=== PATIENT | female | born 1970 | race Caucasian/White ===

== ENCOUNTER 2019-05-22 10:08 | Outpatient (CLI) | payer BC, SELFPAY ==
[2019-05-22 11:18] LABS: Add Urine Microscopic? YES; Appearance Urine Clear (Clear); Bilirubin Urine Negative (Negative); Blood Urine Negative (Negative); Color Urine Yellow (Yellow); Glucose Urine UA Negative (Negative); Ketones Urine Negative (Negative); Leukocyte Esterase Ur Negative LEU/UL (NEGATIVE); Mucus Urine Rare /lpf; Nitrate Urine Negative (Negative); Protein Urine Negative (Negative); RBC Urine 0-2 /hpf (0-2); Specific Grav Ur 1.018 (1.001-1.035); Squamous Epithelial Cell Urine Few /hpf (Few); WBC Urine 0-3 /hpf (0-3)
[2019-05-22 11:27] LABS: Albumin Level 4.1 g/dL (3.5-5.1); Blood Urea Nitrogen 9 mg/dL (7-17); Calcium 9.4 mg/dL (8.4-10.2); Carbon Dioxide 27 mmol/L (22-30); Chloride 105 mmol/L (98-107); Estimated Glomerular Filt Rate > 60; Glucose 110 mg/dL (65-105); Phosphorus 4.3 mg/dL (2.5-4.5); Potassium 4.3 mmol/L (3.4-5.0); Sodium 137 mmol/L (137-145); Uric Acid 7.4 mg/dL (2.5-7.5)
== END 2019-05-22 10:09 | disposition home or self-care (01) ==
LOC: ANHLAB 10:11
PROVIDERS: Visit Provider Internal Medicine Nephrology
DX: N20.0 Calculus of kidney (principal)
CPT/HCPCS: 36415; 80069; 81001; 84550

== ENCOUNTER 2019-05-24 17:04 | Outpatient (CLI) | payer BC, SELFPAY | END 2019-05-24 17:05 | disposition home or self-care (01) | PROVIDERS: Visit Provider Internal Medicine Nephrology | DX: N20.0 Calculus of kidney (principal) | CPT/HCPCS: 36415 ==

== ENCOUNTER 2019-05-28 10:49 | Outpatient (NON) | payer BC, SELFPAY | END 2019-05-28 10:50 | LOC: ANHLAB 10:52 | PROVIDERS: Visit Provider Internal Medicine Nephrology | DX: N20.0 Calculus of kidney (principal) | CPT/HCPCS: 36415; 82340; 82507; 82570; 83735; 83945; 83986; 84105; 84133; 84300; 84392; 84560 ==

== ENCOUNTER 2019-12-22 12:54 | Outpatient (CLI) | payer BC, SELFPAY ==
--- NOTE | ~2019-12-22 | XR_ITS ---
EXAMINATION: XR abdomen/kub 1V INDICATION: Calculus of kidney TECHNIQUE: Supine views of the abdomen were obtained on 2 radiographs. COMPARISON: 11/18/2018 FINDINGS: No definite urolithiasis is identified. Surgical changes are noted in the left mid abdomen. The bowel gas pattern is normal. There are no dilated bowel. Cholecystectomy clips are noted in the right upper quadrant. IMPRESSION: 1. No urolithiasis identified. Reviewed, dictated and finalized at location A.
== END 2019-12-22 12:55 | disposition home or self-care (01) ==
PROVIDERS: Visit Provider Internal Medicine Nephrology
DX: N20.0 Calculus of kidney (principal)
CPT/HCPCS: 74018

== ENCOUNTER 2020-03-12 16:46 | Emergency (ER) | payer BC, SELFPAY ==
[2020-03-12 16:54] VITALS: BP 120/93; PULSE 81; RESP 16; TEMP 36.4; O2SAT 98
[2020-03-12 16:56] VITALS: O2SAT 98
--- NOTE | 2020-03-12 17:00 | ED.LOWEXIN ---
HPI - Extremity Injury (Lower) General Chief Complaint: Wound/Laceration Stated Complaint: rt foot injury Source: patient Mode of arrival: ambulatory Limitations: no limitations History of Present Illness HPI Narrative: Patient is a 49-year-old female who presents with a puncture wound to right foot from stepping on a nail this afternoon that went thru the sole of her shoe. She denies other injuries. She denies taking [id number] medications for pain. She reports washing wound well after injury. Patient's tetanus is not up-to-date. Related Data Home Medications Medication Instructions Recorded Confirmed allopurinol 03/12/20 escitalopram oxalate mg 03/12/20 estradiol [Imvexxy Maintenance mcg VAGINAL 03/12/20 Pack] fesoterodine [Toviaz] mg PO 03/12/20 levothyroxine 03/12/20 topiramate 03/12/20 Allergies Allergy/AdvReac Type Severity Reaction Status Date / Time No Known Allergies Allergy Unverified 07/19/16 10:38 Review of Systems Review of Systems: Narrative: CONSTITUTIONAL: Denies fever, chills, or sweats. EYES: Denies visual changes, redness, or discharge. ENT: Denies rhinorrhea, congestion, sore throat, or otalgia. CARDIOVASCULAR: Denies chest pain, palpitations, or edema. RESPIRATORY: Denies cough or dyspnea. GASTROINTESTINAL: Denies abdominal pain, nausea, vomiting, or diarrhea. GENITOURINARY: Denies dysuria or hematuria. SKIN: Puncture wound to right foot MUSCULOSKELETAL: Denies back pain, joint pain, or myalgia. NEUROLOGIC: Denies headache, numbness, dizziness, or weakness. PSYCHIATRIC: Denies anxiety or depression. [facility] Past Medical History Medical History Anemia Anxiety Arthritis Back pain Chronic sinusitis Chronic tonsillitis Degenerative disc disease Depression Epistaxis Generalized headaches Hemorrhoids HTN (hypertension) Hypothyroidism Recurrent kidney stones UTI (urinary tract infection) Surgical History Surgical History Gastric bypass status for obesity H/O hemorrhoidectomy H/O sinus surgery History of hysterectomy History of orthopedic surgery Hx of cholecystectomy Hx of laparoscopic gastric banding Hx of tonsillectomy Family History Family History Father Family history of cardiovascular disease Family history of lung cancer Mother Family history of lung cancer Social History Social History (Updated 03/12/20 @ 17:07 by NAUN Sanchez) Smoking status: Never smoker Alcohol intake: current Alcohol use details: socially Substance use: never Exam Narrative: Exam Narrative: GENERAL: Well-appearing, well-nourished, and in no acute distress. HEAD: Normocephalic, atraumatic. EYES: No redness or drainage. ENT: Mucous membranes pink and moist. CHEST: No respiratory distress. HEART: Regular rate and rhythm. MUSCULOSKELETAL: No bony tenderness. EXTREMITIES: Normal range of motion. Puncture wound to plantar surface of right foot. SKIN: Warm, dry, no rash. NEURO: No focal deficits. Alert and oriented x3. Gait steady. PSYCH: Normal affect. No signs of depression or anxiety. Course Vital Signs Vital signs: Vital Signs Temperature 36.4 C 03/12/20 16:54 Pulse Rate 81 03/12/20 16:54 Respiratory Rate 16 03/12/20 16:54 Blood Pressure 120/93 H 03/12/20 16:54 Pulse Oximetry 98 03/12/20 16:54 Temperature 36.4 C 03/12/20 16:54 Pulse Rate 81 03/12/20 16:54 Respiratory Rate 16 03/12/20 16:54 Blood Pressure 120/93 H 03/12/20 16:54 Pulse Oximetry 98 03/12/20 16:56 MDM - Extremity Injury (Lower) MDM Narrative Medical decision making narrative: Wound cleansed, patient's tetanus updated. Patient started on levofloxacin at this time for injury. Patient encouraged to follow-up with PCP in 3 to 5 days if symptoms persist. Patient also ins
[2020-03-12] MEDS: TETANUS,DIPHTHERIA,AC PERTUSSIS ADULT (0.5 ML) BOOSTRIX IM (17:02)
== END 2020-03-12 17:30 | disposition home or self-care (01) ==
PROVIDERS: Emergency Provider Nurse Practitioner; PCP Family Medicine
DX: S91.331A Puncture wound without foreign body, right foot, initial encounter (principal); W45.0XXA Nail entering through skin, initial encounter; Z23 Encounter for immunization; M19.90 Unspecified osteoarthritis, unspecified site; I10 Essential (primary) hypertension; E03.9 Hypothyroidism, unspecified; Z98.84 Bariatric surgery status; F41.9 Anxiety disorder, unspecified; F32.9 Major depressive disorder, single episode, unspecified
CPT/HCPCS: 90471; 90715; 99213; G0463

== ENCOUNTER → 2020-04-24 01:14 | Outpatient (CLI) | payer BC, SELFPAY ==
[2020-04-24 18:28] LABS: SARS-CoV-2 RNA PCR Negative
== END ==
PROVIDERS: Visit Provider Surgery
DX: Z01.812 Encounter for preprocedural laboratory examination (principal); Z20.822 Contact with and (suspected) exposure to COVID-19
CPT/HCPCS: C9803; U0003; U0005

== ENCOUNTER 2020-04-27 01:24 | Day surgery (SDC) | payer BC, SELFPAY ==
[2020-04-11 14:37] VITALS: BMI 41.1
[2020-04-27 06:59] VITALS: BP 115/78; PULSE 78; RESP 20; TEMP 36; O2SAT 99; BMI 41.7
[2020-04-27] MEDS: LACTATED RINGERS 1,000 ML 150 ML IV CONT (07:03)
--- NOTE | 2020-04-27 07:42 | WPDANESEPPF ---
Anes - Initial Pre Proc Eval Procedure: Operation Date: 04/27/20 08:00 Proposed Procedures p Screening Colonoscopy - Charles Waite DO Date/Time: 04/27/20 07:42 Surgeon: Charles Waite DO Pre Op Diagnosis: Neoplasm Screening Patient Data Age: 49 Gender: F Height: 1.65 m Weight: 113.8 kg Last Vital Signs Temp 36.0 C L 04/27/20 06:59 Pulse 78 04/27/20 06:59 Resp 20 04/27/20 06:59 BP 115/78 04/27/20 06:59 Pulse Ox 99 04/27/20 06:59 Allergies Allergy/AdvReac Type Severity Reaction Status Date / Time No Known Allergies Allergy Verified 04/27/20 06:56 Home Medications Medication Instructions Recorded Confirmed Type allopurinol 450 mg PO DAILY 03/12/20 04/27/20 History escitalopram oxalate 30 mg PO DAILY 03/12/20 04/27/20 History fesoterodine [Toviaz] 4 mg PO DAILY 03/12/20 04/27/20 History levothyroxine 125 mcg PO DAILY 03/12/20 04/27/20 History topiramate 25 mg PO DAILY 03/12/20 04/27/20 History fluticasone propionate 50 mcg INTRANASAL DAILY 04/11/20 04/27/20 History lorazepam [Ativan] 0.5 mg PO DAILY PRN 04/11/20 04/27/20 History montelukast [Singulair] 10 mg PO DAILY 04/11/20 04/27/20 History sumatriptan succinate [Imitrex] 50 mg PO DAILY PRN 04/11/20 04/27/20 History Patient hx anesthesia problems: none Family hx anesthesia problems: none PMFSH Past Medical History Medical History Anemia Anxiety Arthritis Back pain Chronic sinusitis Chronic tonsillitis Degenerative disc disease Depression Epistaxis Generalized headaches Hemorrhoids HTN (hypertension) Hypothyroidism Recurrent kidney stones UTI (urinary tract infection) Surgical History Surgical History Gastric bypass status for obesity H/O hemorrhoidectomy H/O sinus surgery History of hysterectomy History of orthopedic surgery Hx of cholecystectomy Hx of laparoscopic gastric banding Hx of tonsillectomy Family History Family History Father Family history of cardiovascular disease Family history of lung cancer Mother Family history of lung cancer Social History Social History (Updated 03/12/20 @ 17:07 by NAUN Sanchez) Smoking status: Never smoker Alcohol intake: never Substance use: never Substance use type: does not use Living arrangements: with family Spiritual care concerns: No Anes - Eval Final PreProcedure Day of Procedure 04/27/20 07:42 Patient weight: morbidly obese Heart: regular rate and rhythm Lungs: clear to auscultation and normal air movement Airway: Mallampati scale class II Neurological: alert and oriented Last oral intake: >/= 8 hours ASA classification: III Emergent: no Anesthetic plan: proceed Anesthesia type and monitoring: general GIVS Informed Consent: The patient's anesthetic plan and its attendant risks and benefits were discussed with the patient/family/POA. Questions were solicited and answers provided to the satisfaction of the patient/family/POA.
--- NOTE | 2020-04-27 07:51 | PM.IMHP ---
H&P: HPI History of Present Illness Date/Time: 04/27/20 07:51 Chief Complaint: screening for colorectal cancer Narrative: Angelica Huber is a 49 year old female presents for first colonoscopy. She has occasional blood in stool. Denies change in bowel habits. No fam hx colon cancer. Review of Systems Review of Systems: All systems reviewed & are unremarkable except as noted in HPI and below Constitutional: Constitutional: Denies chills, Denies fever(s), Denies headache(s) and Denies weight loss Eyes: Eyes: Denies change in vision ENT: Denies dizziness, Denies headache(s), Denies neck mass and Denies throat swelling Cardiovascular: Cardiovascular: Denies chest pain, Denies lightheadedness and Denies dyspnea Respiratory: Respiratory: Denies cough, Denies dyspnea and Denies wheezing Gastrointestinal: Gastrointestinal: Denies abdominal pain, Denies change in bowel habits, Denies nausea and Denies vomiting Genitourinary: Genitourinary: Denies hematuria and Denies dysuria Musculoskeletal: Musculoskeletal: Reports as per HPI Integumentary/Breasts: Skin/Breast: Reports as per HPI Neurologic: Denies dizziness and Denies headache(s) Allergic/Immunologic: Allergic/Immunologic: Denies throat swelling and Denies wheezing PMFSH Past Medical History Medical History Anemia Anxiety Arthritis Back pain Chronic sinusitis Chronic tonsillitis Degenerative disc disease Depression Epistaxis Generalized headaches Hemorrhoids HTN (hypertension) Hypothyroidism Recurrent kidney stones UTI (urinary tract infection) Surgical History Surgical History Gastric bypass status for obesity H/O hemorrhoidectomy H/O sinus surgery History of hysterectomy History of orthopedic surgery Hx of cholecystectomy Hx of laparoscopic gastric banding Hx of tonsillectomy Family History Family History Father Family history of cardiovascular disease Family history of lung cancer Mother Family history of lung cancer Social History Social History Smoking status: Never smoker Alcohol intake: never Substance use: never Substance use type: does not use Living arrangements: with family Spiritual care concerns: No Meds Home Medications and Allergies Home Medications Medication Instructions Recorded Confirmed Type allopurinol 450 mg PO DAILY 03/12/20 04/27/20 History escitalopram oxalate 30 mg PO DAILY 03/12/20 04/27/20 History fesoterodine [Toviaz] 4 mg PO DAILY 03/12/20 04/27/20 History levothyroxine 125 mcg PO DAILY 03/12/20 04/27/20 History topiramate 25 mg PO DAILY 03/12/20 04/27/20 History fluticasone propionate 50 mcg INTRANASAL DAILY 04/11/20 04/27/20 History lorazepam [Ativan] 0.5 mg PO DAILY PRN 04/11/20 04/27/20 History montelukast [Singulair] 10 mg PO DAILY 04/11/20 04/27/20 History sumatriptan succinate [Imitrex] 50 mg PO DAILY PRN 04/11/20 04/27/20 History Allergies Allergy/AdvReac Type Severity Reaction Status Date / Time No Known Allergies Allergy Verified 04/27/20 06:56 Vital Signs Vital Signs - 24 hr 04/27/20 06:59 Temperature 36.0 C L Pulse Rate 78 Respiratory Rate 20 Blood Pressure 115/78 Pulse Oximetry 99 Exam Const: General: no acute distress and alert Orientation/consciousness: patient oriented x3 HENMT: Head: normocephalic and atraumatic Ears: hearing grossly normal bilaterally General nose exam: Normal nares present Mouth: Yes Normal oral and palatal mucosa present Eyes: Periorbital: periorbital findings normal Sclera: sclerae normal EOM: EOMs intact bilaterally Neck: Neck: normal visual inspection, no lymphadenopathy and trachea midline Chest: Chest palpation & inspection: normal inspection of the chest Resp: Effort & Inspection: normal res
[2020-04-27 08:32] VITALS: BP 109/78; PULSE 65; RESP 18; O2SAT 99
[2020-04-27 08:42] VITALS: BP 102/69; PULSE 63; RESP 12; O2SAT 98
[2020-04-27 08:52] VITALS: BP 114/78; PULSE 60; RESP 17; O2SAT 100
== END 2020-04-27 09:05 | disposition home or self-care (01) ==
PROVIDERS: PCP Family Medicine; Visit Provider Surgery
PROC: 0DJD8ZZ Inspection of Lower Intestinal Tract, Via Natural or Artificial Opening Endoscopic (ICD-10-PCS; CPT 45378; principal; 2020-04-27 08:00)
DX: Z12.11 Encounter for screening for malignant neoplasm of colon (principal); D12.0 Benign neoplasm of cecum; I10 Essential (primary) hypertension; E03.9 Hypothyroidism, unspecified; D64.9 Anemia, unspecified; F41.8 Other specified anxiety disorders; Z98.84 Bariatric surgery status; E66.01 Morbid (severe) obesity due to excess calories; Z68.41 Body mass index [BMI] 40.0-44.9, adult
CPT/HCPCS: 45385; 88305; J2704; J7120

== ENCOUNTER 2020-07-24 17:39 | Outpatient (CLI) | payer BC, SELFPAY ==
--- NOTE | ~2020-07-24 | XR_ITS ---
EXAMINATION: XR abdomen/kub 1V EXAM DATE: 07/24/2020 17:55 INDICATION: Bilateral ureteral calculi, low back pain. TECHNIQUE: Frontal projection of the upper abdomen, frontal projection lower abdomen/pelvis for inter pretation. Comparison is made to prior examination from 12/22/2019. FINDINGS: There are a couple of densities between the left L2 and L3 vertebral bodies, may be too hig h to be ureteropelvic junction stones. This finding has been indicated, marked on the examination for review, clinical correlation. No calcific densities identified over the kidneys. Left-sided pelvic surgical clip. There are cholecystectomy clips. Nonobstructive bowel gas pattern. Gastroesophageal junction surgical changes. There are mild bony degenerative changes. IMPRESSION: Possible left UPJ stones. Reviewed, dictated and finalized at location A. IMPRESSION: Possible left UPJ stones.
== END 2020-07-24 17:40 | disposition home or self-care (01) ==
PROVIDERS: Visit Provider Urology
DX: N20.1 Calculus of ureter (principal)
CPT/HCPCS: 74018

== ENCOUNTER 2020-07-31 17:09 | Outpatient (CLI) | payer BC, SELFPAY ==
--- NOTE | ~2020-07-31 | CT_ITS ---
EXAMINATION: CT abdomen pelvis wo con DATE: 07/31/2020 17:48 INDICATION: Left-sided kidney stones TECHNIQUE: Computed tomography (CT) of the abdomen and pelvis was performed without intravenous contr ast. Automated exposure control and iterative reconstruction technique were employed. Exam dose: 921 .25 mGy-cm total exam DLP. COMPARISON: 07/24/2020 KUB 11/13/[address] abdomen pelvis FINDINGS: The lung bases are clear of infiltrate or consolidation. Heart size is within normal limits. No pericardial or pleural effusion. Status post cholecystectomy. Status post gastric bypass surgery. Small sliding hiatal hernia. The liver, spleen, pancreas, adrenal glands are unremarkable. No right urinary tract calculus or hydroureteronephrosis. Approximately 4 mm nonobstructing lower pole left renal calculus. No apparent ureteral calculus on the left. No hydronephrosis. The urinary bladder is unremarkable. Status post hysterectomy. Normal caliber of the abdominal aorta. No intraperitoneal or retroperitoneal or pelvic mass lesion or adenopathy or ascites. Normal appendix. No bowel obstruction, bowel wall thickening, pneumatosis or intraperitoneal free air is evident. Small fat-containing umbilical hernia. No suspicious osteolytic or osteoblastic lesions. IMPRESSION: 4 mm lower pole nonobstructing left renal calculus Status post cholecystectomy Status post gastric bypass surgery Small sliding hiatal hernia Reviewed, dictated and finalized at Location A. Reviewed, dictated and finalized at location A.
== END 2020-07-31 17:10 | disposition home or self-care (01) ==
PROVIDERS: Visit Provider Urology
DX: N20.0 Calculus of kidney (principal); Z90.49 Acquired absence of other specified parts of digestive tract; K44.9 Diaphragmatic hernia without obstruction or gangrene
CPT/HCPCS: 74176

== ENCOUNTER 2020-09-04 14:57 | Emergency (ER) | payer BC, SELFPAY ==
--- NOTE | ~2020-09-04 | CT_ITS ---
EXAMINATION: CT abdomen pelvis w con DATE: 09/04/2020 18:39 INDICATION: Right lower quadrant abdominal pain. TECHNIQUE: Computed tomography (CT) of the abdomen and pelvis was performed with 100 mL Omnipaque 350 intravenous contrast. Automated exposure control and iterative reconstruction technique were employe d. The dose-length product was 1375.65 mGy-cm. COMPARISON: CT abdomen and pelvis 07/31/2020, 03/26/17 FINDINGS: The visualized portions of the lung bases are clear without pneumonia or pleural effusion. The heart size is normal. No pericardial effusion. Defects in the right lower lobe pulmonary artery a re suspicious for emboli. There is a small sliding hiatal hernia. There are surgical changes of the s tomach. The liver and spleen are normal. There are changes of cholecystectomy. The pancreas, adrenal glands, and right kidney are normal. There is cortical thinning of left kidney. There are 2 stones in left kidney with the larger measuring 4 mm. There are no dilated loops of bowel. The appendix is nor mal. There are no pathologically enlarged lymph nodes. There is no free intraperitoneal fluid. There is a benign bone island in left sacral ala. IMPRESSION: 1. Acute right lower lobe pulmonary emboli. I called this result to Kristan Fan. Reviewed, dictated and finalized at location A. IMPRESSION: 1. Acute right lower lobe pulmonary emboli. I called this result to Kristan gonsales.
--- NOTE | ~2020-09-04 | CT_ITS ---
EXAMINATION: CTA chest PE protocol DATE: 09/04/2020 19:11 INDICATION: Acute pulmonary emboli. TECHNIQUE: Computed tomography angiography (CTA) of the chest was performed with 100 mL Omnipaque-350 intravenous contrast timed to evaluate the pulmonary arteries. Coronal maximum intensity projection 3D-reconstructions were created by the technologist. Automated exposure control and iterative reconst ruction technique were employed. The dose-length product was 797.34 mGy-cm. COMPARISON: CT abdomen and pelvis 09/04/2020 FINDINGS: There is no pneumonia or pleural effusion. The heart size is normal. No pericardial effusio n. There is a small sliding hiatal hernia. There are surgical changes of the stomach. There are aust[place] es of cholecystectomy. There are acute pulmonary emboli in the basal segments of right lower lobe. Th ere is mild thoracic spondylosis. There are changes of anterior fusion procedure in cervical spine. IMPRESSION: 1. Acute pulmonary emboli in right lower lobe. Reviewed, dictated and finalized at location A.
[2020-09-04 15:00] VITALS: BP 118/81; PULSE 86; RESP 20; TEMP 36.4; O2SAT 100
[2020-09-04 15:11] LABS: Basophils Absolute Auto 0.1 K/mm3 (0.0-0.1); Eosinophils Absolute Auto 0.4 K/mm3 (0-0.3); Eosinophils Percent Auto 4.7 % (0-4.4); Hematocrit 38.3 % (37.0-47.0); Hemoglobin 12.6 g/dL (12.0-15.0); Immature Granulocyte Absolute 0.01 K/mm3 (0.00-0.031); Immature Granulocyte Percent A 0.1 % (0-0.5); Lymphocytes Absolute Auto 2.53 K/mm3 (0.9-3.2); Lymphocytes Percent Auto 29.5 % (18.3-44.2); Mean Corpuscular HGB Conc 32.9 g/dl (32-36); Mean Corpuscular Hemoglobin 31.3 pg (26-34); Mean Platelet Volume 9.4 fl (7.4-10.4); Monocytes Absolute Auto 0.6 K/mm3 (0.1-0.6); Monocytes Percent Auto 7.2 % (2.6-8.5); Neutrophils Absolute Auto 4.9 K/mm3 (1.3-6.7); Neutrophils Percent Auto 57.5 % (45.5-73.1); Platelet Count Result 339 k/mm3 (150-375); Red Blood Count 4.03 M/mm3 (4.2-5.4); Red Cell Distribution Width 12.9 % (11.5-14.5); White Blood Count 8.6 K/mm3 (4.5-10.0)
[2020-09-04 15:22] LABS: Alanine Aminotransferase 19 U/L (4-35); Albumin Level 4.6 g/dL (3.5-5.1); Alkaline Phosphatase 82 U/L (38-126); Anion Gap 10 mmol/L (8-16); Aspartate Amino Transferase 27 U/L (14-36); Bilirubin,Total 0.3 mg/dL (0.2-1.3); Blood Urea Nitrogen 10 mg/dL (7-17); Calcium 9.5 mg/dL (8.4-10.2); Carbon Dioxide 25 mmol/L (22-30); Chloride 106 mmol/L (98-107); Estimated CRCL calculation 118 ml/min; Estimated Glomerular Filt Rate > 60; Glucose 132 mg/dL (65-105); Lipase 176 U/L (23-300); Potassium 4.2 mmol/L (3.4-5.0); Sodium 141 mmol/L (137-145)
[2020-09-04 15:40] LABS: Add Urine Microscopic? YES; Appearance Urine Cloudy (Clear); Bacteria Urine Trace /hpf; Bilirubin Urine Negative (Negative); Blood Urine Negative (Negative); Color Urine Amber (Yellow); Glucose Urine UA Negative (Negative); Ketones Urine Negative (Negative); Leukocyte Esterase Ur Negative LEU/UL (Negative); Mucus Urine Heavy /lpf; Nitrate Urine Negative (Negative); Protein Urine Negative (Negative); Specific Grav Ur 1.025 (1.001-1.035); Squamous Epithelial Cell Urine Many /hpf (Few)
--- NOTE | 2020-09-04 17:37 | ED.ABDPAIN ---
HPI - Abdominal Pain General Chief Complaint: Abdominal Pain Stated Complaint: rlq abd pain Time Seen by Provider: 09/04/20 16:50 Source: patient Mode of arrival: ambulatory Limitations: no limitations History of Present Illness HPI narrative: Patient is a 49-year-old female who presents complaining of right lower quadrant pain x1 day. Patient reports pain starting early Friday. She reports taking Tylenol yesterday with limited relief. She reports awaking this morning with increased pain. She reports pain with palpation and movement. She denies nausea, vomiting, or diarrhea. She reports a history of a partial hysterectomy and kidney stones in the past. She denies urinary complaints at this time. Patient appears uncomfortable. MD elicited complaint: abdominal pain Related Data Home Medications Medication Instructions Recorded Confirmed Toviaz 4 mg PO DAILY 03/12/20 09/04/20 allopurinol 450 mg PO DAILY 03/12/20 09/04/20 escitalopram oxalate 30 mg PO DAILY 03/12/20 09/04/20 levothyroxine 125 mcg PO DAILY 03/12/20 09/04/20 topiramate 25 mg PO DAILY 03/12/20 09/04/20 fluticasone propionate 50 mcg INTRANASAL DAILY 04/11/20 09/04/20 lorazepam [Ativan] 0.5 mg PO DAILY PRN 04/11/20 09/04/20 montelukast [Singulair] 10 mg PO DAILY 04/11/20 09/04/20 sumatriptan succinate [Imitrex] 50 mg PO DAILY PRN 04/11/20 09/04/20 Allergies Allergy/AdvReac Type Severity Reaction Status Date / Time No Known Allergies Allergy Verified 09/04/20 15:02 Review of Systems Review of Systems: Narrative: CONSTITUTIONAL: Denies fever, chills, or sweats. EYES: Denies visual changes, redness, or discharge. ENT: Denies rhinorrhea, congestion, sore throat, or otalgia. CARDIOVASCULAR: Denies chest pain, palpitations, or edema. RESPIRATORY: Denies cough or dyspnea. GASTROINTESTINAL: Reports abdominal pain, denies nausea, vomiting, or diarrhea. GENITOURINARY: Denies dysuria or hematuria. SKIN: Denies rash or itching. MUSCULOSKELETAL: Denies back pain, joint pain, or myalgia. NEUROLOGIC: Denies headache, numbness, dizziness, or weakness. PSYCHIATRIC: Denies anxiety or depression. [facility] Past Medical History Medical History Anemia Anxiety Arthritis Back pain Chronic sinusitis Chronic tonsillitis Degenerative disc disease Depression Epistaxis Generalized headaches Hemorrhoids HTN (hypertension) Hypothyroidism Recurrent kidney stones UTI (urinary tract infection) Surgical History Surgical History Gastric bypass status for obesity H/O hemorrhoidectomy H/O sinus surgery History of hysterectomy History of orthopedic surgery Hx of cholecystectomy Hx of laparoscopic gastric banding Hx of tonsillectomy Family History Family History Father Family history of cardiovascular disease Family history of lung cancer Mother Family history of lung cancer Social History Social History Smoking status: Never smoker Alcohol intake: never Substance use: never Substance use type: does not use Gender identity (if verbalized by the patient): Female Spiritual care concerns: No Comments At the time of signature, I have reviewed and agree with nursing past medical, surgical, social, and family history unless otherwise noted. Please see nursing chart for further information. There is no relevant family history pertinent to the presenting complaint. Exam Narrative: Exam Narrative: GENERAL: Well-appearing, well-nourished, and in no acute distress. HEAD: Normocephalic, atraumatic. EYES: EOMI. No redness or drainage. Conjunctiva are normal. ENT: Mucous membranes pink and moist. CHEST: No respiratory distress. Clear to auscultation. HEART: Regular rate and rhythm. No murmur appreciated. Normal peripheral pulses. GI: Soft, ten
[2020-09-04] MEDS: SODIUM CHLORIDE 0.9% IV 1,000 ML 999 ML IV CONT (17:51)
--- NOTE | 2020-09-04 18:57 | ECG_ITS ---
Measurements Intervals [place] Rate: 66 P: 202 LA: 155 QRS: 185 QRSD: 90 T: 174 QT: 415 QTc: 436 Interpretive Statements SINUS RHYTHM LIMB LEAD REVERSAL BASELINE ARTIFACT- I, III, AVL, AVF, V1, V3-V4 ATYPICAL ECG Electronically Signed On 09-04-2020 19:51:33 CDT by Zak Lu D.O.
[2020-09-04 19:28] VITALS: BP 130/81; PULSE 62; RESP 12; O2SAT 100
[2020-09-04 19:39] LABS: Prothrombin Time 13.8 Seconds (11.1-14.7)
[2020-09-04] MEDS: RIVAROXABAN 15 MG TABLET PO (21:23)
== END 2020-09-04 22:17 | disposition home or self-care (01) ==
PROVIDERS: Emergency Medicine; Emergency Provider Nurse Practitioner; PCP Family Medicine
DX: I26.99 Other pulmonary embolism without acute cor pulmonale (principal); I10 Essential (primary) hypertension; E03.9 Hypothyroidism, unspecified; M19.90 Unspecified osteoarthritis, unspecified site; F41.9 Anxiety disorder, unspecified; F32.9 Major depressive disorder, single episode, unspecified; Z86.2 Personal history of diseases of the blood and blood-forming organs and certain disorders involving the immune mechanism; Z87.442 Personal history of urinary calculi; Z87.440 Personal history of urinary (tract) infections; Z98.84 Bariatric surgery status
CPT/HCPCS: 36415; 71275; 74177; 80053; 81001; 83690; 85025; 85610; 85730; 93005; 96361; 96365; 99284; A9270; J0131; J7030; Q9967

== ENCOUNTER 2020-11-15 09:56 | Emergency (ER) | payer BC, SELFPAY ==
--- NOTE | ~2020-11-15 | XR_ITS ---
EXAMINATION: XR femur LT min 2V DATE: 11/15/2020 11:22 INDICATION: Dog bite with lacerations at the medial aspect of the left thigh. TECHNIQUE: AP and lateral views of the left femur were obtained on separate overlapping proximal and distal images. COMPARISON: None. FINDINGS: Bone alignment is normal. No fracture. Joint spaces appear normal. No left knee joint effus ion. Small soft tissue density and associated lucency in the superficial subcutaneous tissues at the medial aspect of the distal left thigh which likely represents the site of a reported dog bite with l aceration. No radiopaque foreign bodies or more remote soft tissue gas. Surgical clip at the left hem ipelvis. IMPRESSION: 1. No osseous abnormality or radiopaque foreign bodies. Reviewed, dictated and finalized at location A.
--- NOTE | ~2020-11-15 | XR_ITS ---
EXAMINATION: XR forearm LT 2V DATE: 11/15/2020 11:21 INDICATION: Dog bite with lacerations to the left forearm TECHNIQUE: AP an lateral views of the left forearm were obtained. COMPARISON: none FINDINGS: Bone alignment is normal. No fracture. Joint spaces are normal. Soft tissue swelling with focal subcu taneous edema at the ulnar side of the proximal forearm. Extensive soft tissue swelling with subcutan eous edema and soft tissue gas extending along the muscular fascia proximally and distally along the proximal to mid left forearm with deep laceration seen at the dorsal aspect of the mid forearm. No ra diopaque foreign bodies identified. IMPRESSION: 1. Deep laceration with extensive soft tissue gas along the left forearm. No radiopaque foreign body or osseous abnormality. Reviewed, dictated and finalized at location A. IMPRESSION: 1. Deep laceration with extensive soft tissue gas along the left forearm. No ra diopaque foreign body or osseous abnormality.
--- NOTE | ~2020-11-15 | XR_ITS ---
EXAMINATION: XR wrist RT 2V DATE: 11/15/2020 11:21 INDICATION: Dog bite with right wrist laceration and swelling TECHNIQUE: Posteroanterior and lateral views of the right wrist were obtained. COMPARISON: none FINDINGS: Bone alignment is normal. There is a localized fracture with depression of the volar cortex and a sma ll region of the distal right ulnar metaphysis. The dorsal, radial and ulnar sided cortices appear to remain intact suggesting this likely represents a punch type type fracture likely resulting from the tooth of the reported dog bite. This would render this./Compound fracture increased risk of deve loping osteomyelitis. No other fractures identified. Joint spaces are normal. Diffuse soft tissue swe lling about the distal forearm. IMPRESSION: 1. Small punch type fracture along the volar cortex of the distal right ulnar metaphyseal region which given provided history would be considered an open fracture at increased risk of infection. Reviewed, dictated and finalized at location A. IMPRESSION: 1. Small punch type fracture along the volar cortex of the distal right uln ar metaphyseal region which given provided history would be considered an open fracture at increased risk of infection.
[2020-11-15 10:00] VITALS: BP 122/81; PULSE 95; RESP 14; TEMP 36.4; O2SAT 98
--- NOTE | 2020-11-15 10:07 | ED.GENADULT ---
HPI - General Adult General Chief complaint: Animal Bite Stated complaint: Dog Bites Time Seen by Provider: 11/15/20 10:06 History of Present Illness HPI narrative: Patient is a 50-year-old female who comes to the ED today after suffering numerous dog bites. Patient reports that her dogs got into a fight at home and she tried to separate it and unfortunately suffered numerous bites. She has puncture wounds/lacerations over her right wrist area, left thigh and over her left forearm. She is having a minimal amount of pain. She is able to ambulate with some discomfort. The dogs are up-to-date on their shots. She just had her tetanus shot earlier this year. She is on Xarelto for PE. Bleeding is controlled currently. Notes that she is currently on amoxicillin for a ear infection prescribed by her primary care doctor. She has several pit bulls.. Related Data Home Medications Medication Instructions Recorded Confirmed Toviaz 4 mg PO DAILY 03/12/20 09/04/20 allopurinol 450 mg PO DAILY 03/12/20 09/04/20 escitalopram oxalate 30 mg PO DAILY 03/12/20 09/04/20 levothyroxine 125 mcg PO DAILY 03/12/20 09/04/20 topiramate 25 mg PO DAILY 03/12/20 09/04/20 fluticasone propionate 50 mcg INTRANASAL DAILY 04/11/20 09/04/20 lorazepam [Ativan] 0.5 mg PO DAILY PRN 04/11/20 09/04/20 montelukast [Singulair] 10 mg PO DAILY 04/11/20 09/04/20 sumatriptan succinate [Imitrex] 50 mg PO DAILY PRN 04/11/20 09/04/20 Allergies Allergy/AdvReac Type Severity Reaction Status Date / Time No Known Allergies Allergy Verified 09/04/20 15:02 Review of Systems Constitutional: Constitutional: Reports as per HPI, Denies fever(s), Denies night sweats and Denies weakness Cardiovascular: Cardiovascular: Denies chest pain, Denies edema, Denies leg edema, Denies dyspnea and Denies orthopnea Respiratory: Respiratory: Denies cough and Denies dyspnea Gastrointestinal: Gastrointestinal: Denies abdominal pain, Denies constipation, Denies diarrhea, Denies nausea and Denies vomiting Musculoskeletal: Musculoskeletal: Denies abnormal gait, Denies back pain, Denies numbness and Denies tingling Comments: Pain around areas of animal bites in right wrist and left forearm and left thigh Integumentary/Breasts: Comments: See HPI for animal bites. Neurologic: Denies Abnormal speech present, Denies abnormal gait, Denies numbness, Denies tingling and Denies weakness Psychiatric: Psychiatric: Denies homicidal ideation and Denies suicidal ideation PMFSH Past Medical History Medical History Anemia Anxiety Arthritis Back pain Chronic sinusitis Chronic tonsillitis Degenerative disc disease Depression Epistaxis Generalized headaches Hemorrhoids HTN (hypertension) Hypothyroidism Recurrent kidney stones UTI (urinary tract infection) Surgical History Surgical History Gastric bypass status for obesity H/O hemorrhoidectomy H/O sinus surgery History of hysterectomy History of orthopedic surgery Hx of cholecystectomy Hx of laparoscopic gastric banding Hx of tonsillectomy Family History Family History Father Family history of cardiovascular disease Family history of lung cancer Mother Family history of lung cancer Social History Social History Smoking status: Never smoker Alcohol intake: never Alcohol use details: socially Substance use: never Substance use type: does not use Gender identity (if verbalized by the patient): Female Spiritual care concerns: No Exam Narrative: Pleasant. Const: General: cooperative, healthy appearing, comfortable, no acute distress, well developed, alert, awake and Physically active; No lethargic Orientation/consciousness: patient oriented x3 HENMT: Head: normal to inspection, normocephalic
[2020-11-15] MEDS: ACETAMINOPHEN 325 MG TABLET 650 MG PO (11:00)
[2020-11-15] MEDS: ceFAZolin SODIUM 1 GM VIAL 2 GM IM (14:30)
[2020-11-15 16:09] VITALS: BP 120/76; PULSE 92; RESP 16; O2SAT 98
== END 2020-11-15 16:12 | disposition home or self-care (01) ==
PROVIDERS: Emergency Provider Emergency Medicine; PCP Family Medicine
DX: S52.691B Other fracture of lower end of right ulna, initial encounter for open fracture type I or II (principal); S71.152A Open bite, left thigh, initial encounter; S51.852A Open bite of left forearm, initial encounter; I10 Essential (primary) hypertension; E03.9 Hypothyroidism, unspecified; F41.9 Anxiety disorder, unspecified; F32.9 Major depressive disorder, single episode, unspecified; Z87.442 Personal history of urinary calculi; Z87.440 Personal history of urinary (tract) infections; Z86.2 Personal history of diseases of the blood and blood-forming organs and certain disorders involving the immune mechanism; Z98.84 Bariatric surgery status; W54.0XXA Bitten by dog, initial encounter
CPT/HCPCS: 12002; 12004; 12032; 29125; 73090; 73100; 73552; 96372; 99284; A9270; J0690

== ENCOUNTER 2021-12-28 11:58 | Outpatient (CLI) | payer BC, SELFPAY ==
--- NOTE | ~2021-12-28 | XR_ITS ---
EXAMINATION: XR abdomen/kub 1V INDICATION: Bilateral ureteral calculi TECHNIQUE: Supine views of the abdomen were obtained on 2 radiographs. COMPARISON: 09/04/2020 FINDINGS: There appear to be stones measuring 3 mm in the lower pole of the left kidney. No additiona l urolithiasis is identified. The bowel gas pattern is normal. Cholecystectomy clips are noted in the right upper quadrant. The lung bases are clear. IMPRESSION: 1. Probable left nephrolithiasis. Reviewed, dictated and finalized at location F.
== END 2021-12-28 11:59 | disposition home or self-care (01) ==
LOC: ANHIMG 12:03
PROVIDERS: Visit Provider Urology
DX: N20.1 Calculus of ureter (principal)
CPT/HCPCS: 74018

== ENCOUNTER 2022-01-07 13:41 | Outpatient (CLI) | payer BC, SELFPAY ==
--- NOTE | ~2022-01-07 | CT_ITS ---
EXAMINATION: CT abdomen pelvis wo con DATE: 01/07/2022 14:03 INDICATION: Bilateral ureteral calculi TECHNIQUE: Computed tomography (CT) of the abdomen and pelvis was performed without intravenous contr ast. The dose-length product was 637.36 mGy-cm. Automated exposure control and iterative reconstructi on technique were employed. COMPARISON: CT dated 09/04/2020. FINDINGS: Lung bases are unremarkable. Heart size normal. No significant pleural or pericardial effus ion. There are changes of gastric bypass surgery. There are cholecystectomy clips. There are multiple nonobstructing left renal stones, largest measuring 4 mm. No ureteral stones or hydronephrosis. The liver, spleen, pancreas, adrenal glands are unremarkable. Nonobstructive bowel pattern. Normal ap pendix. No abnormal pelvic masses or fluid collections. No free air or free fluid. Mild lumbar spondy losis. No acute bone or joint abnormality. Small bone island present in the left sacral ala. Mild lum bar spondylosis. IMPRESSION: 1. Nonobstructing left nephrolithiasis. Reviewed, dictated and finalized at location B.
== END 2022-01-07 13:42 | disposition home or self-care (01) ==
PROVIDERS: Visit Provider Urology
DX: N20.1 Calculus of ureter (principal); N20.0 Calculus of kidney
CPT/HCPCS: 74176

== ENCOUNTER 2022-03-25 10:50 | Outpatient (CLI) | payer BC, SELFPAY ==
--- NOTE | ~2022-03-25 | XR_ITS ---
EXAMINATION: XR abdomen/kub 1V INDICATION: Calculus of the kidney TECHNIQUE: Supine views of the abdomen were obtained on 2 radiographs. COMPARISON: 12/28/2021 FINDINGS: There appear to be stones measuring up to 3 mm in the left kidney lower pole. Surgical clip s in the right upper quadrant are likely from prior cholecystectomy. There are surgical changes at th e gastroesophageal junction into the left midabdomen. There are no dilated loops of bowel. IMPRESSION: 1. Probable left nephrolithiasis. Reviewed, dictated and finalized at location B. RTISING SPECIALIST
[2022-03-25 12:49] LABS: Add Urine Microscopic? YES; Appearance Urine Clear (Clear); Bilirubin Urine Negative (Negative); Blood Urine Negative (Negative); Color Urine Yellow (Yellow); Glucose Urine UA Negative (Negative); Ketones Urine Negative (Negative); Leukocyte Esterase Ur Negative LEU/UL (NEGATIVE); Nitrate Urine Negative (Negative); Protein Urine Trace mg/dL (Negative); Specific Grav Ur >= 1.030 (1.001-1.035); Urobilinogen Urine 0.2 mg/dL (<2.0); pH Urine 5.5 (5.0-9.0)
[2022-03-25 12:53] LABS: Mucus Urine Moderate /lpf; Squamous Epithelial Cell Urine Few /hpf (Few); WBC Urine 0-3 /hpf (0-3)
[2022-03-25 13:00] LABS: Albumin Level 4.3 g/dL (3.5-5.1); Anion Gap 6 mmol/L (8-16); Blood Urea Nitrogen 11 mg/dL (7-17); Calcium 9.1 mg/dL (8.4-10.2); Carbon Dioxide 29 mmol/L (22-30); Chloride 101 mmol/L (98-107); Estimated Glomerular Filt Rate > 60; Glucose 138 mg/dL (65-110); Phosphorus 4.3 mg/dL (2.5-4.5); Potassium 4.2 mmol/L (3.4-5.0); Sodium 136 mmol/L (137-145); Uric Acid 6.6 mg/dL (2.5-7.5)
== END 2022-03-25 10:51 | disposition home or self-care (01) ==
PROVIDERS: Visit Provider Internal Medicine Nephrology
DX: N20.0 Calculus of kidney (principal)
CPT/HCPCS: 36415; 74018; 80069; 81001; 84550

== ENCOUNTER 2022-04-02 12:14 | Outpatient (CLI) | payer BC, SELFPAY ==
[2022-04-02 17:19] LABS: Appearance Urine Clear (Clear); Bilirubin Urine Negative (Negative); Blood Urine Negative (Negative); Color Urine Yellow (Yellow); Glucose Urine UA Negative (Negative); Ketones Urine Negative (Negative); Leukocyte Esterase Ur Negative LEU/UL (NEGATIVE); Nitrate Urine Negative (Negative); Protein Urine Negative (Negative); Specific Grav Ur >= 1.030 (1.001-1.035); Urobilinogen Urine 0.2 mg/dL (<2.0)
[2022-04-02 17:20] LABS: Add Urine Microscopic? NO
[2022-04-02 17:26] LABS: Creatinine Urine 63.7 mg/dL
[2022-04-02 18:09] LABS: Total Protein Urine Random < 5 mg/dL; Ur Ttl Prot Creatinine Ratio < 0.08 mg/mg (0-0.20)
== END 2022-04-02 12:15 | disposition home or self-care (01) ==
LOC: ANHLAB 12:17
PROVIDERS: Visit Provider Internal Medicine Nephrology
DX: N20.0 Calculus of kidney (principal)
CPT/HCPCS: 81003; 82570; 84156

== ENCOUNTER 2023-06-12 00:19 | Day surgery (SDC) | payer BC, SELFPAY ==
[2023-06-04 10:46] VITALS: BMI 39.9
--- NOTE | 2023-06-10 08:14 | SUR.PREOP ---
Patient called regarding upcoming procedure. Reviewed preop instructions, appointment times, and procedure prep.
[2023-06-12 06:40] VITALS: BP 118/80; PULSE 85; RESP 16; TEMP 36.2; O2SAT 97
[2023-06-12] MEDS: LACTATED RINGERS 1,000 ML 150 ML IV CONT (06:53)
--- NOTE | 2023-06-12 07:29 | WPDANESEPPF ---
Anes - Initial Pre Proc Eval Procedure: Operation Date: 06/12/23 08:00 Proposed Procedures p Screening Colonoscopy - Charles Waite DO Date/Time: 06/12/23 07:29 Surgeon: Charles Waite DO Pre Op Diagnosis: History of colon polyps Patient Data Age: 52 Gender: F Height: 1.65 m Weight: 109.6 kg Last Vital Signs Temp 97.1 F L 06/12/23 06:40 Pulse 85 06/12/23 06:40 Resp 16 06/12/23 06:40 BP 118/80 06/12/23 06:40 Pulse Ox 97 06/12/23 06:40 O2 Del Method Room Air 06/12/23 06:40 Allergies Allergy/AdvReac Type Severity Reaction Status Date / Time No Known Allergies Allergy Verified 06/12/23 06:39 Home Medications Medication Instructions Recorded Confirmed Type allopurinol 300 mg tablet 450 mg PO DAILY 03/12/20 06/04/23 History escitalopram oxalate 20 mg tablet 30 mg PO DAILY 03/12/20 06/04/23 History levothyroxine 125 mcg tablet 125 mcg PO DAILY 03/12/20 06/04/23 History fluticasone propionate 50 50 mcg intranasal DAILY 04/11/20 06/04/23 History mcg/actuation nasal spray,suspension lorazepam 0.5 mg tablet (Ativan) 0.5 mg PO DAILY PRN Anxiety 04/11/20 06/04/23 History montelukast 10 mg tablet 10 mg PO DAILY 04/11/20 06/04/23 History (Singulair) sumatriptan succinate 50 mg tablet 50 mg PO DAILY PRN Migraine 04/11/20 06/04/23 History (Imitrex) Headache hydrocortisone 2.5 % topical cream 1 applic topical DAILY PRN itching 04/10/23 06/04/23 Rx #30 grams buspirone 10 mg tablet 10 mg PO PRN PRN Anxiety 06/04/23 06/04/23 History ferrous sulfate 325 mg (65 mg 325 mg PO DAILY 06/04/23 06/04/23 History iron) tablet galcanezumab-gnlm 120 mg/mL 120 mg subcut MONTHLY 06/04/23 06/04/23 History subcutaneous pen injector (Emgality Pen) Patient hx anesthesia problems: none Family hx anesthesia problems: none Results Review: All pre-operative results and documents have been reviewed as part of the pre-operative evaluation. [facility] Past Medical History Medical History Anemia Anxiety Arthritis Back pain Chronic sinusitis Chronic tonsillitis Degenerative disc disease Depression Epistaxis Generalized headaches Hemorrhoids HTN (hypertension) Hypothyroidism Recurrent kidney stones UTI (urinary tract infection) Surgical History Surgical History Gastric bypass status for obesity H/O hemorrhoidectomy H/O sinus surgery History of hysterectomy History of orthopedic surgery Hx of cholecystectomy Hx of laparoscopic gastric banding Hx of tonsillectomy Family History Family History Father Family history of cardiovascular disease Family history of lung cancer Mother Family history of lung cancer Social History Social History Smoking status: Never smoker Alcohol intake: current Alcohol use details: rarely Substance use: never Substance use type: does not use Lack of Transportation: No Lack of Food: Never True Current Housing: I Have Housing Concerned About Future Housing: No Difficulty Paying Gas/Electric Bills: No Difficulty Paying for Meds: No Currently Unemployed: No Education: Associate Degree Difficulty w/ Childcare or Family Care: No Living arrangements: with family Gender identity (if verbalized by the patient): Female Spiritual care concerns: No Anes - Eval Final PreProcedure Day of Procedure 06/12/23 07:29 Patient weight: morbidly obese Heart: regular rate and rhythm Lungs: clear to auscultation Airway: Mallampati scale class II Neurological: alert and oriented Last oral intake: >/= 8 hours ASA classification: III Emergent: no Anesthetic plan: proceed Anesthesia type and monitoring: general GIVS and standard monitoring Results Review: All pre-operative results an
--- NOTE | 2023-06-12 07:55 | PM.IMHP ---
H&P: HPI History of Present Illness Date/Time: 06/12/23 07:55 Chief Complaint: history of colon polyps Narrative: this 52-year-old woman who presents for colonoscopy. Her last colonoscopy was 3 years ago. A tubulovillous adenoma was removed at that time. She states that she does notice some blood in her stool at times and describes it as red or maroon. She denies any melena. She denies any family history of colon cancer. Review of Systems Review of Systems: All systems reviewed & are unremarkable except as noted in HPI and below Constitutional: Constitutional: Denies chills, Denies fever(s), Denies headache(s) and Denies weight loss Eyes: Eyes: Denies change in vision ENT: Denies dizziness, Denies headache(s), Denies neck mass and Denies throat swelling Cardiovascular: Cardiovascular: Denies chest pain, Denies lightheadedness and Denies dyspnea Respiratory: Respiratory: Denies cough, Denies dyspnea and Denies wheezing Gastrointestinal: Gastrointestinal: Denies abdominal pain, Denies change in bowel habits, Denies nausea and Denies vomiting Genitourinary: Genitourinary: Denies hematuria and Denies dysuria Musculoskeletal: Musculoskeletal: Reports as per HPI Integumentary/Breasts: Skin/Breast: Reports as per HPI Neurologic: Denies dizziness and Denies headache(s) Allergic/Immunologic: Allergic/Immunologic: Denies throat swelling and Denies wheezing [facility] Past Medical History Medical History Anemia Anxiety Arthritis Back pain Chronic sinusitis Chronic tonsillitis Degenerative disc disease Depression Epistaxis Generalized headaches Hemorrhoids HTN (hypertension) Hypothyroidism Recurrent kidney stones UTI (urinary tract infection) Surgical History Surgical History Gastric bypass status for obesity H/O hemorrhoidectomy H/O sinus surgery History of hysterectomy History of orthopedic surgery Hx of cholecystectomy Hx of laparoscopic gastric banding Hx of tonsillectomy Family History Family History Father Family history of cardiovascular disease Family history of lung cancer Mother Family history of lung cancer Social History Social History Smoking status: Never smoker Alcohol intake: current Alcohol use details: rarely Substance use: never Substance use type: does not use Lack of Transportation: No Lack of Food: Never True Current Housing: I Have Housing Concerned About Future Housing: No Difficulty Paying Gas/Electric Bills: No Difficulty Paying for Meds: No Currently Unemployed: No Education: Associate Degree Difficulty w/ Childcare or Family Care: No Living arrangements: with family Gender identity (if verbalized by the patient): Female Spiritual care concerns: No Meds Home Medications and Allergies Home Medications Medication Instructions Recorded Confirmed Type allopurinol 300 mg tablet 450 mg PO DAILY 03/12/20 06/04/23 History escitalopram oxalate 20 mg tablet 30 mg PO DAILY 03/12/20 06/04/23 History levothyroxine 125 mcg tablet 125 mcg PO DAILY 03/12/20 06/04/23 History fluticasone propionate 50 50 mcg intranasal DAILY 04/11/20 06/04/23 History mcg/actuation nasal spray,suspension lorazepam 0.5 mg tablet (Ativan) 0.5 mg PO DAILY PRN Anxiety 04/11/20 06/04/23 History montelukast 10 mg tablet 10 mg PO DAILY 04/11/20 06/04/23 History (Singulair) sumatriptan succinate 50 mg tablet 50 mg PO DAILY PRN Migraine 04/11/20 06/04/23 History (Imitrex) Headache hydrocortisone 2.5 % topical cream 1 applic topical DAILY PRN itching 04/10/23 06/04/23 Rx #30 grams buspirone 10 mg tablet 10 mg PO PRN PRN Anxiety 06/04/23 06/04/23 History ferrous sulfate 325 mg (65 mg 325 mg PO DAILY 06/04/23 06/04/23 History
[2023-06-12 08:36] VITALS: BP 99/71; PULSE 73; RESP 26; O2SAT 100
[2023-06-12 08:46] VITALS: BP 115/86; PULSE 75; RESP 19; O2SAT 100
[2023-06-12 08:56] VITALS: BP 112/65; PULSE 74; RESP 20; O2SAT 100
== END 2023-06-12 09:02 | disposition home or self-care (01) ==
PROVIDERS: Visit Provider Surgery
PROC: 0DJD8ZZ Inspection of Lower Intestinal Tract, Via Natural or Artificial Opening Endoscopic (ICD-10-PCS; CPT 45378; principal; 2023-06-12 08:00)
DX: Z12.11 Encounter for screening for malignant neoplasm of colon (principal); K64.8 Other hemorrhoids; I10 Essential (primary) hypertension; D64.9 Anemia, unspecified; J32.9 Chronic sinusitis, unspecified; J35.01 Chronic tonsillitis; F32.A Depression, unspecified; E03.9 Hypothyroidism, unspecified; R51.9 Headache, unspecified; E66.01 Morbid (severe) obesity due to excess calories; Z68.41 Body mass index [BMI] 40.0-44.9, adult; Z79.85 Long-term (current) use of injectable non-insulin antidiabetic drugs; Z98.890 Other specified postprocedural states; Z98.84 Bariatric surgery status; Z90.49 Acquired absence of other specified parts of digestive tract; Z86.010 Personal history of colon polyps; Z80.1 Family history of malignant neoplasm of trachea, bronchus and lung; Z82.49 Family history of ischemic heart disease and other diseases of the circulatory system
CPT/HCPCS: 45378; J2704; J7120

== ENCOUNTER 2024-05-04 12:40 | Emergency (ER) | payer BC, SELFPAY ==
--- NOTE | ~2024-05-04 | XR_ITS ---
EXAMINATION: XR chest 2V DATE: 05/04/2024 13:22 INDICATION: Cough and fever and congestion. Shortness of breath. TECHNIQUE: Frontal and lateral views of the chest were obtained on 3 radiographs. COMPARISON: Chest single view 05/19/2009 FINDINGS: There is no pneumonia, pleural effusion, or pneumothorax. The heart size is normal. Surgica l clips in the right upper quadrant are likely from cholecystectomy. IMPRESSION: 1. No acute cardiopulmonary disease. Reviewed, dictated and finalized at location A. UTIVE COORDINATOR
--- NOTE | 2024-05-04 12:47 | ED_ITS ---
HPI - URI/Sore Throat General Chief Complaint: Upper Respiratory Infection Stated Complaint: Chest Congestion Source: patient and RN notes reviewed Mode of arrival: ambulatory Limitations: no limitations History of Present Illness HPI Narrative: Patient is a 53-year-old female who presents to the [facility] with complaints of sore throat, cough, and chills since Friday evening. Patient states that her sore throat continues worsen. She has had both nasal and chest congestion. She endorses a frequent nonproductive cough that is occasionally productive with yellow sputum. She denies shortness of breath. Unsure of fever at home but reports sweats and chills. She also endorses generalized body aches. Unsure of any known sick contacts. Related Data Home Medications ?Medication ?Instructions ?Recorded ?Confirmed ?Last Taken ?Type allopurinol 300 mg tablet 450 mg PO DAILY 03/12/20 06/04/23 04/26/20 History escitalopram oxalate 20 mg tablet 30 mg PO DAILY 03/12/20 06/04/23 04/26/20 History levothyroxine 125 mcg tablet 125 mcg PO DAILY 03/12/20 06/04/23 04/26/20 History fluticasone propionate 50 50 mcg intranasal DAILY 04/11/20 06/04/23 04/26/20 History mcg/actuation nasal spray,suspension lorazepam 0.5 mg tablet (Ativan) 0.5 mg PO DAILY PRN Anxiety 04/11/20 06/04/23 04/27/20 History montelukast 10 mg tablet 10 mg PO DAILY 04/11/20 06/04/23 04/26/20 History (Singulair) sumatriptan succinate 50 mg tablet 50 mg PO DAILY PRN Migraine 04/11/20 06/04/23 04/26/20 History (Imitrex) Headache buspirone 10 mg tablet 10 mg PO PRN PRN Anxiety 06/04/23 06/04/23 Unknown History ferrous sulfate 325 mg (65 mg 325 mg PO DAILY 06/04/23 06/04/23 Unknown History iron) tablet galcanezumab-gnlm 120 mg/mL 120 mg subcut MONTHLY 06/04/23 06/04/23 Unknown History subcutaneous pen injector (Emgality Pen) Allergies Allergy/AdvReac Type Severity Reaction Status Date / Time No Known Allergies Allergy Verified 05/04/24 12:49 Review of Systems Review of Systems: CONSTITUTIONAL: Denies fever, but reports chills and sweats. EYES: Denies visual changes, redness, or discharge. ENT: Denies otalgia. Reports sore throat and congestion. CARDIOVASCULAR: Denies chest pain, palpitations, or edema. RESPIRATORY: Reports cough but denies dyspnea. GASTROINTESTINAL: Denies abdominal pain, nausea, vomiting, or diarrhea. GENITOURINARY: Denies dysuria or hematuria. SKIN: Denies rash or itching. MUSCULOSKELETAL: Denies back pain, joint pain, but reports myalgia. NEUROLOGIC: Denies headache, numbness, or weakness. Pertinent positives per HPI. [facility] Past Medical History Medical History Anemia Anxiety Depression Hypothyroidism Back pain Degenerative disc disease Arthritis UTI (urinary tract infection) Recurrent kidney stones Hemorrhoids HTN (hypertension) Generalized headaches Chronic tonsillitis Chronic sinusitis Epistaxis Surgical History Surgical History History of orthopedic surgery History of hysterectomy Gastric bypass status for obesity Hx of cholecystectomy H/O hemorrhoidectomy Hx of laparoscopic gastric banding H/O sinus surgery Hx of tonsillectomy Family History Family History Father Family history of cardiovascular disease Family history of lung cancer Mother Family history of lung cancer Social History Social History Smoking status: Never smoker Alcohol intake: current Alcohol use details: rarely Substance use: never Substance use type: does not use Lack of Transportation: No Lack of Food: Never True Current Housing: I Have Housing Concerned About Future Housing: No Difficulty Paying Gas/Electric Bills: No Difficulty Paying for Meds: No Currently Unemployed: No Education: Associate Degree Difficulty w/ Childcare or Family Care: No Living arrangements: with family Gender identity (if verbalized by the patient): Female Spiritual care concerns: No Comments At the time of my signature, I reviewed and agree with the nursing past medical, surgical, social, and family history. There is no relevant family history perti nent to the patient complaint. Exam Narrative: GENERAL: This is a well-nourished, well-developed patient, in no apparent distress. HEAD: normocephalic, atraumatic. EYES: Sclera clear/white. Vision is grossly intact. EARS: External ears normal, auditory canals clear and without drainage, TMs normal without perforation. Hearing grossly intact. NOSE: External nose normal with no obvious nasal discharge, nares without redness, no rhinorrhea. THROAT: Mucous membranes moist, oropharyngeal erythema without exudate or ulceration. NECK: Neck supple, non-tender without lymphadenopathy, masses or thyromegaly. CARDIOVASCULAR: Regular rate and rhythm without murmurs, gallops, or rubs. RESPIRATORY: Clear to auscultation. Breath sounds equal bilaterally. No wheezes, rales, or rhonchi. GASTROINTESTINAL: Abdomen soft, non-tender, nondistended. Bowel sounds are active. No hepato-splenomegaly, or palpable masses. No guarding. SKIN: warm, intact with no suspicious lesions or rash, good texture and turgor. NEURO: awake, alert, and oriented to person, place and time. There were no obvious focal neurologic abnormalities. Course Course Level of Care: Express Care Visit Vital Signs Vital signs: Vital Signs Temperature 100.3 F H 05/04/24 12:53 Pulse Rate 102 H 05/04/24 12:53 Respiratory Rate 16 05/04/24 12:53 Blood Pressure 141/89 H 05/04/24 12:53 Pulse Oximetry 100 05/04/24 12:53 Temperature 100.3 F H 05/04/24 12:53 Pulse Rate 102 H 05/04/24 12:53 Respiratory Rate 16 05/04/24 12:53 Blood Pressure 141/89 H 05/04/24 12:53 Pulse Oximetry 100 05/04/24 12:53 Reviewed MDM - URI/Sore Throat MDM Narrative Medical decision making narrative: Viral illness may last between 7-21 days; antibiotics do not cure viral illness and are NOT recommended at this time. Also, recommend symptomatic treatment includes: rest, fluids, and increase humidity of the air at home. Recommend Acetaminophen as directed on the bottle to reduce fever, pain, headache. Please schedule a follow-up visit with your personal physician for further evaluation and treatment within 3-5days. If your symptoms persist, change or worsen significantly before you can contact your personal physician then please, without delay, go to the emergency department for further evaluation. Differential Diagnosis Differential diagnosis: Likely upper respiratory infection, viral infection, influenza and other (covid, strep) Lab Data Attestation: I reviewed the patient's lab results. Labs: Lab Results 05/04/24 Range/Units 13:16 POC Influenza A Ag Negative (Negative) POC Influenza B Ag Negative (Negative) POC SARS CoV-2 Ag Negative (Negative) POC Grp A Strep Screen Negative (Negative) Imaging Data Attestation: I personally reviewed and interpreted this imaging study as follows: Radiologist's impression: Close Chest X-Ray (Signed) Russell Garner - 05/04/24 Launch?[facility] [address] [place] [address] XRay Report Signed Patient: Angelica Huber : 1970 MR#: [id number] Age: 53 Acct:[id number] Loc: [id number] ADM Date: 05/04/24Attending Dr: Ordering Physician: Almita Leonardo APRN Date of Service: 05/04/24 Procedure(s): XR chest 2V Accession Number(s): [id number] cc: Almita Leonardo APRN; WASHER ENGINEER PHYSICIAN~ EXAMINATION: XR chest 2V DATE: 05/04/2024 13:22 INDICATION: Cough and fever and congestion. Shortness of breath. TECHNIQUE: Frontal and lateral views of the chest were obtained on 3 radiographs. COMPARISON: Chest single view 05/19/2009 FINDINGS: There is no pneumonia, pleural effusion, or pneumothorax. The heart size is normal. Surgical clips in the right upper quadrant are likely from cholecystectomy. IMPRESSION: 1. No acute cardiopulmonary disease. Reviewed, dictated and finalized at location A. COORDINATOR Please be advised this is a medical document. It is intended for [id number] communication. It is written in medical language and may contain unfamiliar abbreviations or verbiage. Medical documents are intended to carry relevant information, facts as evident, and the clinical opinion of the practitioner at the time of the encounter. This report may have been done utilizing a voice recognition system. Attempts have been made to correct errors. However, there may be uncorrected grammatical, spelling, and recognition errors present. The file time of this note does not necessarily represent the time of service. Dictated By: Russell Garner MD 05/04/24 1324 Signed By: <Electronically signed by Russell Garner MD in OV> 05/04/24 1324 Critical Care Time Critical Care Time Critical Care Time: No Discharge Plan Discharge Clinical Impression: Viral illness Patient Disposition: Home, Self-Care Condition: Stable Instructions: Viral Syndrome (ED) Additional Instructions: Viral illness may last between 7-21 days; antibiotics do not cure viral illness and are NOT recommended at this time. Also, recommend symptomatic treatment includes: rest, fluids, and increase humidity of the air at home. Recommend Acetaminophen as directed on the bottle to reduce fever, pain, headache. Please schedule a follow-up visit with your personal physician for further evaluation and treatment within 3-5days. If your symptoms persist, change or worsen significantly before you can contact your personal physician then please, without delay, go to the emergency department for further evaluation. Patient Language: German Prescriptions: No Action levothyroxine 125 mcg tablet 125 mcg PO DAILY allopurinol 300 mg tablet 450 mg PO DAILY escitalopram oxalate 20 mg tablet 30 mg PO DAILY hydrocortisone 2.5 % cream 1 applic topical DAILY PRN (Reason: itching) Qty: 30 2RF ferrous sulfate 325 mg (65 mg iron) tablet 325 mg PO DAILY buspirone 10 mg tablet 10 mg PO PRN PRN (Reason: Anxiety) Emgality Pen 120 mg/mL pen injector 120 mg SUBCUT MONTHLY sumatriptan succinate [Imitrex] 50 mg Tablet 50 mg PO DAILY PRN (Reason: Migraine Headache) lorazepam [Ativan] 0.5 mg Tablet 0.5 mg PO DAILY PRN (Reason: Anxiety) montelukast [Singulair] 10 mg Tablet 10 mg PO DAILY fluticasone propionate 50 mcg/actuation spray,suspension 50 mcg INTRANASAL DAILY Follow-up/Referrals: PHYSICIAN,WASHER ENGINEER [Primary Care Provider] - Time of Disposition: 13:36
[2024-05-04 12:53] VITALS: BP 141/89; PULSE 102; RESP 16; TEMP 37.9; O2SAT 100
[2024-05-04 13:18] LABS: EDCOVIDSCREEN Negative (Negative); EDINFLUASCREEN Negative (Negative); EDINFLUBSCREEN Negative (Negative); EDSTREPNEGPOS1 Negative (Negative)
== END 2024-05-04 13:41 | disposition home or self-care (01) ==
PROVIDERS: Emergency Provider Nurse Practitioner
DX: B34.9 Viral infection, unspecified (principal); Z20.822 Contact with and (suspected) exposure to COVID-19; I10 Essential (primary) hypertension; E03.9 Hypothyroidism, unspecified; M19.90 Unspecified osteoarthritis, unspecified site; F41.9 Anxiety disorder, unspecified; F32.A Depression, unspecified; D64.9 Anemia, unspecified
CPT/HCPCS: 71046; 87081; 87426; 87804; 87880; 99213; G0463